=== PATIENT | male | born 1945 | race Caucasian/White ===

== ENCOUNTER 2024-12-17 10:15 | Emergency (ER) | payer MEDICARE, OTHER ==
[2024-12-17 11:14] LABS: INR 2.12 (1.00-1.24)
== END 2024-12-17 12:00 | disposition home or self-care (01) ==
LOC: FB.ED 10:15
DX: S93.401A Sprain of unspecified ligament of right ankle, initial encounter (principal); E78.00 Pure hypercholesterolemia, unspecified; I10 Essential (primary) hypertension; I25.2 Old myocardial infarction; Z95.5 Presence of coronary angioplasty implant and graft; Z79.899 Other long term (current) drug therapy; Z79.82 Long term (current) use of aspirin; Z79.01 Long term (current) use of anticoagulants; Z87.891 Personal history of nicotine dependence; X58.XXXA Exposure to other specified factors, initial encounter; Y93.89 Activity, other specified
CPT/HCPCS: 36415; 73610-26-RT; 73610-RT; 85610; 99283